=== PATIENT | male | born 1990 | race Caucasian/White ===

== ENCOUNTER 2017-06-30 23:15 | Emergency (ER) | payer SELFPAY ==
[2017-06-30] MEDS ORDERED: FENTANYL 100MCG/2ML SOL IV ONE (23:21)
[2017-06-30 23:26] VITALS: RESP 20; TEMP 98.3
[2017-06-30] MEDS ORDERED: FENTANYL 100MCG/2ML SOL ONE (23:29)
[2017-06-30] MEDS: SODIUM CHLORIDE 0.9% FLUSH 10 ML SOL IV PRN ×2 (23:30→23:37)
[2017-07-01 00:28] VITALS: BP 123/72; PULSE 66; O2SAT 99
== END 2017-07-01 00:19 | disposition home or self-care (01) | DRG 563 ==
LOC: ED 23:15
DX: M24.412 Recurrent dislocation, left shoulder (principal)
CPT/HCPCS: 73020; 99284; J3010

== ENCOUNTER 2018-03-12 00:40 | Emergency (ER) | payer SELFPAY ==
[2018-03-12] MEDS ORDERED: MIDAZOLAM 2 MG/2 ML SOL IV ONE (00:59)
[2018-03-12] MEDS ORDERED: FLUMAZENIL 1 MG/10 ML SOL IV PRN (00:59)
[2018-03-12] MEDS ORDERED: MORPHINE SULFATE 10 MG/ML SOL IV ONE (00:59)
[2018-03-12] MEDS ORDERED: SODIUM CHLORIDE 0.9% FLUSH 10 ML SOL IV PRN (00:59)
[2018-03-12] MEDS ORDERED: MORPHINE SULFATE 10 MG/ML SOL ONE (01:25)
[2018-03-12] MEDS ORDERED: MIDAZOLAM 2 MG/2 ML SOL ONE (01:25)
[2018-03-12] MEDS ORDERED: FLUMAZENIL 1 MG/10 ML SOL IV ONE (01:25)
[2018-03-12 03:27] VITALS: TEMP 98
[2018-03-12 03:29] VITALS: BP 129/85; PULSE 98; RESP 16; O2SAT 99
== END 2018-03-12 02:18 | disposition home or self-care (01) | DRG 563 ==
LOC: ED 00:40
DX: S43.005A Unspecified dislocation of left shoulder joint, initial encounter (principal); W10.9XXA Fall (on) (from) unspecified stairs and steps, initial encounter; F10.129 Alcohol abuse with intoxication, unspecified
CPT/HCPCS: 73030; 94762; 96374; 96375; 99283; 99285; J2250; J2270; J3490